=== PATIENT | female | born 1990 | race Two or more races ===

== ENCOUNTER 2016-07-01 18:10 | Emergency (ER) | payer MEDICAID ==
[~2016-07-01] VITALS: Ht 160 cm; Wt 96.2 kg
[2016-07-01 18:32] VITALS: BP 135/86
[2016-07-01 19:13] LABS: Basophils # (auto) 0 uL; Basophils % (auto) 0.2 % (0.0-2.0); Eosinophils # (auto) 0.2 uL; Eosinophils % (auto) 3.2 % (0.0-7.0); Hematocrit 40.4 % (36.0-46.0); Hemoglobin 13.8 g/dL (12.2-16.2); Lymphocytes # (auto) 2.2 uL; Mean Corpuscular Hemoglobin 29.4 pg (28.0-32.0); Mean Corpuscular Hgb Conc. 34.3 g/dL (32.0-36.0); Mean Corpuscular Volume 85.9 fL (80.0-100.0); Mean Platelet Volume 8.6 fL (7.4-10.4); Monocytes # (auto) 0.7 uL; Monocytes % (auto) 9.5 % (0.0-12.0); Neutrophils # (auto) 4.1 uL; Neutrophils % (auto) 57.1 % (37.0-80.0); Platelet Count (auto) 271 10^3/uL (140-450); Red Cell Distribution Width 12.9 % (11.6-16.0); White Blood Cell 7.2 10^3/uL (4.4-10.8)
[2016-07-01 19:23] LABS: INR 0.98 (0.9-1.15); Partial Thromboplastin Time 27.3 sec (22.64-33.71); Prothrombin Time 10.6 sec (9.37-12.3)
[2016-07-01 19:26] LABS: Albumin 3.8 g/dL (3.4-5.0); Anion Gap 9 (5-15); Aspartate Aminotransferase 14 U/L (15-37); BUN/Creatinine Ratio 14.8; Blood Urea Nitrogen 9 mg/dL (7-18); Calcium 8.8 mg/dL (8.5-10.1); Carbon Dioxide 27 mmol/L (21-32); Chloride 107 mmol/L (98-107); GFR African American 152 mL/min; GFR Non-African American 126 mL/min; Glucose 110 mg/dL (74-106); Magnesium 2.1 mg/dL (1.6-2.6); Potassium 3.6 mmol/L (3.5-5.1); Sodium 143 mmol/L (136-145)
[2016-07-01 19:33] LABS: Alkaline Phosphatase 52 U/L (45-117); Bilirubin, Total 0.6 mg/dL (0.2-1.0); Total Protein 7.9 g/dL (6.4-8.2)
[2016-07-01 19:40] LABS: B-Type Natriuretic Peptide 3.07 pg/mL (0-100)
[2016-07-01 20:02] LABS: Temperature: 23.4 C (20.0-25.0)
== END 2016-07-01 19:39 | disposition home or self-care (01) ==
LOC: ER 18:10
DX: F41.9 Anxiety disorder, unspecified (principal)
CPT/HCPCS: 36415; 71010; 80053; 83735; 83880; 84443; 84484; 85025; 85379; 85610; 85730

== ENCOUNTER 2016-08-29 16:36 | Emergency (ER) | payer MEDICAID ==
[~2016-08-29] VITALS: Ht 170.2 cm; Wt 90.7 kg
[2016-08-29] MEDS ORDERED: EPINEPHrine HCL 1 MG/1 ML AMP IM ONE (17:00)
[2016-08-29] MEDS ORDERED: methylPREDNISolone SOD SUCC 125 MG/2 ML VL IV ONE (17:00)
[2016-08-29 17:15] VITALS: BP 122/70
== END 2016-08-29 18:38 | disposition home or self-care (01) ==
LOC: ER 16:36 → EDBD 16:36 → ER 18:38
DX: T78.1XXA Other adverse food reactions, not elsewhere classified, initial encounter (principal); L50.9 Urticaria, unspecified; X58.XXXA Exposure to other specified factors, initial encounter
CPT/HCPCS: 96372; 96374; 99284; J0171; J2930

== ENCOUNTER 2017-08-24 20:01 | Emergency (ER) | payer MEDICAID ==
[~2017-08-24] VITALS: Ht 167.6 cm; Wt 97.5 kg
[2017-08-24 20:54] LABS: Basophils # (auto) 0 uL; Basophils % (auto) 0.3 % (0.0-2.0); Eosinophils # (auto) 0.2 uL; Eosinophils % (auto) 2.5 % (0.0-7.0); Hematocrit 37.2 % (36.0-46.0); Lymphocytes # (auto) 1.9 uL; Lymphocytes % (auto) 20.4 % (10.0-50.0); Mean Corpuscular Hemoglobin 30.4 pg (28.0-32.0); Mean Corpuscular Hgb Conc. 34.9 g/dL (32.0-36.0); Mean Corpuscular Volume 87.2 fL (80.0-100.0); Monocytes # (auto) 0.5 uL; Monocytes % (auto) 5.3 % (0.0-12.0); Neutrophils # (auto) 6.6 uL; Neutrophils % (auto) 71.5 % (37.0-80.0); Nucleated Red Blood Cells % 0.1 %; Platelet Count (auto) 249 10^3/uL (140-450); Red Blood Cells 4.27 10^6/uL (4.0-5.20); Red Cell Distribution Width 13.1 % (11.8-14.3); White Blood Cell 9.2 10^3/uL (4.4-10.8)
[2017-08-24 21:16] LABS: Albumin 3.3 g/dL (3.4-5.0); BUN/Creatinine Ratio 8.3; Bilirubin, Total 0.7 mg/dL (0.2-1.0); Magnesium 2.2 mg/dL (1.6-2.6); Potassium 3.4 mmol/L (3.5-5.1); Total Protein 7.6 g/dL (6.4-8.2)
[2017-08-24 23:10] VITALS: BP 105/53
== END 2017-08-24 23:25 | disposition home or self-care (01) ==
LOC: ER 20:01
DX: O26.892 Other specified pregnancy related conditions, second trimester (principal); T78.40XA Allergy, unspecified, initial encounter; J30.2 Other seasonal allergic rhinitis; Z3A.18 18 weeks gestation of pregnancy
CPT/HCPCS: 36415; 76805; 80053; 83735; 84702; 85025; 93005

== ENCOUNTER 2018-04-12 15:13 | Emergency (ER) | payer MEDICAID ==
[~2018-04-12] VITALS: Ht 167.6 cm; Wt 81.6 kg
[2018-04-12 15:43] VITALS: BP 123/75
[2018-04-12] MEDS ORDERED: methylPREDNISolone SOD SUCC 125 MG/2 ML VL IM ONE (16:00)
[2018-04-12] MEDS ORDERED: diphenhdrAMINE HCL 50 MG/1 ML VL IM ONE (16:00)
== END 2018-04-12 16:43 | disposition home or self-care (01) ==
LOC: ER 15:18
DX: T78.40XA Allergy, unspecified, initial encounter (principal); X58.XXXA Exposure to other specified factors, initial encounter
CPT/HCPCS: 96372; 99283; J1200; J2930

== ENCOUNTER 2018-10-17 21:59 | Emergency (ER) | payer MEDICAID ==
[~2018-10-17] VITALS: Ht 162.6 cm; Wt 101.2 kg
[2018-10-17 22:42] LABS: Basophils # (auto) 0 uL; Basophils % (auto) 0.1 % (0.0-2.0); Eosinophils # (auto) 0.3 uL; Eosinophils % (auto) 3.6 % (0.0-7.0); Hematocrit 39.7 % (36.0-46.0); Hemoglobin 13.8 g/dL (12.2-16.2); Lymphocytes # (auto) 2.6 uL; Lymphocytes % (auto) 30.4 % (10.0-50.0); Mean Corpuscular Hemoglobin 29.6 pg (28.0-32.0); Mean Corpuscular Hgb Conc. 34.8 g/dL (32.0-36.0); Monocytes # (auto) 0.6 uL; Monocytes % (auto) 6.7 % (0.0-12.0); Neutrophils % (auto) 59.2 % (37.0-80.0); Nucleated Red Blood Cells % 0.1 %; Platelet Count (auto) 240 10^3/uL (140-450); Red Blood Cells 4.67 10^6/uL (4.0-5.20); Red Cell Distribution Width 13.5 % (11.8-14.3); White Blood Cell 8.4 10^3/uL (4.4-10.8)
[2018-10-17 22:45] LABS: Urine Pregnacy Test Negative (Negative)
[2018-10-17 22:47] LABS: Urine Bacteria FEW /hpf (None Seen); Urine Blood Negative /uL (Negative); Urine WBC 15 /hpf (0 - 5)
[2018-10-17 23:01] LABS: Alcohol, Urine < 3.0 mg/dL (0-5); Amphetamine Screen, Urine NEGATIVE (NEGATIVE); Barbiturate Scree,Urine NEGATIVE (NEGATIVE); Benzodiazephine Screen, Urine NEGATIVE (NEGATIVE); Cannabinoid Screen, Urine NEGATIVE (NEGATIVE); Cocaine Screen, Urine NEGATIVE (NEGATIVE); Opiate Scree,Urine NEGATIVE (NEGATIVE); Phencyclidine Screen, Urine NEGATIVE (NEGATIVE)
[2018-10-17 23:01] LABS: Alanine Aminotransferase 117 U/L (13-56); Albumin 3.7 g/dL (3.4-5.0); Anion Gap 11 (5-15); Aspartate Aminotransferase 38 U/L (15-37); BUN/Creatinine Ratio 11.4; Blood Urea Nitrogen 8 mg/dL (7-18); Calcium 8.4 mg/dL (8.5-10.1); Carbon Dioxide 24 mmol/L (21-32); Chloride 105 mmol/L (98-107); GFR African American 128 mL/min; GFR Non-African American 106 mL/min; Glucose 124 mg/dL (74-106); Potassium 3.5 mmol/L (3.5-5.1); Sodium 140 mmol/L (136-145)
[2018-10-17 23:05] LABS: Alkaline Phosphatase 66 U/L (45-117); Bilirubin, Total 0.7 mg/dL (0.2-1.0); Total Protein 7.8 g/dL (6.4-8.2)
[2018-10-18] MEDS ORDERED: cefTRIAXone 1GM/50ML D5W 50 ML IV ONE (02:15)
[2018-10-18] MEDS ORDERED: SODIUM CHLORIDE 0.9% 1,000 ML IV ONE (02:15)
[2018-10-18 04:00] VITALS: BP 100/60
== END 2018-10-18 04:23 | disposition home or self-care (01) ==
LOC: ER 22:02
DX: R00.2 Palpitations (principal); N39.0 Urinary tract infection, site not specified
CPT/HCPCS: 36415; 80053; 80307; 81001; 81025; 84484; 85025; 93005; 96365; 99284; J0696; J7030

== ENCOUNTER 2019-04-08 20:00 | Emergency (ER) | payer MEDICAID ==
[~2019-04-08] VITALS: Ht 165.1 cm; Wt 105.2 kg
[2019-04-08 20:38] VITALS: BP 110/74
== END 2019-04-08 21:16 | disposition home or self-care (01) ==
LOC: ER 20:01
DX: J01.00 Acute maxillary sinusitis, unspecified (principal); J20.9 Acute bronchitis, unspecified; H65.93 Unspecified nonsuppurative otitis media, bilateral

== ENCOUNTER 2019-08-17 10:20 | Emergency (ER) | payer MEDICAID ==
[~2019-08-17] VITALS: Ht 170.2 cm; Wt 103.4 kg
[2019-08-17 10:35] VITALS: BP 139/92
[2019-08-17] MEDS ORDERED: methylPREDNISolone SOD SUCC 125 MG/2 ML VL IM ONE (11:00)
[2019-08-17] MEDS ORDERED: EPINEPHrine HCL 1 MG/1 ML AMP SC ONE (11:00)
== END 2019-08-17 11:41 | disposition home or self-care (01) ==
LOC: ER 10:20
DX: T78.40XA Allergy, unspecified, initial encounter (principal); X58.XXXA Exposure to other specified factors, initial encounter
CPT/HCPCS: 96372; 99284; J0171; J2930

== ENCOUNTER 2021-05-16 05:30 | Emergency (ER) | payer MEDICAID ==
[~2021-05-16] VITALS: Ht 170.2 cm; Wt 108.9 kg
[2021-05-16 05:31] VITALS: BP 142/82
[2021-05-16] MEDS ORDERED: CEPH500C PO (07:30)
[2021-05-16] MEDS ORDERED: IBUP800T26 PO (07:30)
[2021-05-16] MEDS ORDERED: PRED10TA PO (07:30)
[2021-05-16] MEDS ORDERED: DexAMETHasone SOD PHOS 4 MG/1ML SDV INJ IM ONE (07:30)
== END 2021-05-16 07:51 | disposition home or self-care (01) ==
LOC: ER 05:30
DX: J02.9 Acute pharyngitis, unspecified (principal); R59.0 Localized enlarged lymph nodes
CPT/HCPCS: 96372; 99283; J1100